=== PATIENT | female | born 1965 | race Caucasian/White ===

== ENCOUNTER 2018-01-31 19:42 | Emergency (ER) | payer OTHER ==
[~2018-01-31] VITALS: Ht 152.4 cm; Wt 54.4 kg
[2018-01-31] MEDS ORDERED: GLUCOTEN CAPLE1 EACH (19:51)
[2018-02-01] MEDS ORDERED: DICY20TA PO (01:38)
== END 2018-02-01 01:34 | disposition home or self-care (01) ==
LOC: ER 19:42
DX: K80.20 Calculus of gallbladder without cholecystitis without obstruction (principal); R10.32 Left lower quadrant pain